=== PATIENT | female | born 1990 | race Asian ===

== ENCOUNTER → 2017-04-09 | Outpatient (CLI) | payer OTHER ==
[~2017-04-09] MED LIST: AMOX500C2; FOLI0.8C PO; PREN-115 PO
--- NOTE | 2017-04-09 15:41 | Diagnostic Imaging Report ---
PROCEDURE: US OB SINGLE FETUS <14 WKS. TECHNIQUE: Multiple real-time grayscale images were obtained over the gravid uterus in various projections. INDICATION: Evaluation for size and dates. FINDINGS: There is presence of an intrauterine . Medon-rump length measures 2.56 cm for an estimated age of 9 weeks 3 days. This gives an estimated date of delivery of November 09, 2017. cardiac activity demonstrated at 183 beats per minutes. No abnormal perigestational fluid collections. Limited imaging of the adnexa demonstrates nonvisualization of either ovary. Partially visualized bladder appears unremarkable. IMPRESSION: Early viable intrauterine with estimated age of 9 weeks 3 days for an estimated date of delivery of November 09, 2017. Dictated by: Dictated on workstation # [id number]
== END ==
LOC: RAD 14:04
PROVIDERS: ATTEND Family Medicine
DX: Z36 Encounter for antenatal screening of mother (principal); Z3A.09 9 weeks gestation of pregnancy
CPT/HCPCS: 76801

== ENCOUNTER 2017-04-19 18:51 | Emergency (ER) | payer OTHER ==
[~2017-04-19] VITALS: Ht 165.1 cm; Wt 72.6 kg
[~2017-04-19 18:51] MED LIST changes: -FOLI0.8C PO
--- OUTSIDE RECORDS SUMMARY | 2017-04-19 18:57 | XMS REPORT ---
Author Author IVET ROBERTSON eClinicalWorks Address Unknown Phone Unavailable Care Team Providers Care Hydraulic Auto Jack Mechanic Name Role Phone IVET ROBERTSON Unavailable Allergies No Known Allergies Problems Problem Type Condition Code Onset Dates Condition Status Assessment care, first , first trimester Z34.01 Active Assessment 8 weeks gestation of Z3A.08 Active Assessment Threatened miscarriage O20.0 Active Medications Medication Code System Code Instructions Start Date End Date Status Dosage [facility] [id number] not defined Procedures Procedure Coding System Code Date URINE TEST CPT-4 32169 Apr 30, 2016 CHORIONIC GONADOTROPIN TEST CPT-4 85242 Apr 30, 2016 URINALYSIS, AUTO, W/O SCOPE CPT-4 75311 Apr 30, 2016 Office Visit, Est Pt., Level 2 CPT-4 51654 Apr 30, 2016 VENIPUNCT, ROUTINE* CPT-4 54021 Apr 30, 2016 URINE CULTURE/COLONY COUNT CPT-4 59568 Apr 30, 2016 Vital Signs Date/Time: Apr 30, 2016 Blood Pressure Systolic 119 mmHg Cardiac Monitoring Heart Rate 84 bpm Weight 133.4 lbs Blood Pressure Diastolic 61 mmHg Results Name Result Date Reference Range Unit Abnormality Flag HCG, QUANTITATIVE ----hCG,Beta Subunit,Qnt,Serum 977 [id number] mIU/mL Ultrasound : OB, Early <14 WEEKS UA LONG DIP (IN HOUSE) ----JULIENNE 1+ 20160430 ----NIT Negative 20160430 ----SG 1.020 20160430 ----KET Negative 20160430 ----LUCRECIA Negative 20160430 ----GLU Negative 20160430 ----Odor None 20160430 ----pH 5.5 20160430 ----BLO 3+ 20160430 ----URO 0.2 20160430 ----Protein Negative 20160430 ----Lot # [id number] ----Exp date 20160430 ----Clarity Clear 20160430 ----Color Yellow 20160430 ROUTINE VENIPUNCTURE Summary Purpose eClinicalWorks Submission
--- OUTSIDE RECORDS SUMMARY | 2017-04-19 18:57 | XMS REPORT ---
Author Author IVET ROBERTSON [facility] Address [address] [place] [address] Care Team Providers Care Vp Strategy Name Role Phone IVET ROBERTSON Unavailable PROBLEMS Unknown Problems ALLERGIES Unknown Allergies SOCIAL HISTORY No smoking Hx information available PLAN OF CARE VITAL SIGNS MEDICATIONS Unknown Medications RESULTS Name Result Date Reference Range Ultrasound : OB, Early <14 WEEKS 2016-07-03 PROCEDURES No Known procedures IMMUNIZATIONS No Known Immunizations
--- OUTSIDE RECORDS SUMMARY | 2017-04-19 18:57 | XMS REPORT ---
Author Author SHYAM COOMBS Organization eClinicalWorks Address Unknown Phone Unavailable Care Team Providers Care Hand Sign Writer Name Role Phone SHYAM COOMBS Unavailable Allergies No Known Allergies Problems Problem Type Condition Code Onset Dates Condition Status Assessment Encounter for test Z32.00 Active Medications No Known Medications Procedures Procedure Coding System Code Date URINE TEST CPT-4 64385 Jun 16, 2016 Results Name Result Date Reference Range Unit Abnormality Flag TEST, URINE (IN HOUSE) ----RESULTS POSITIVE [id number] ----Lot # [id number] ----Control + 20160616 ----Exp date 20160616 Summary Purpose eClinicalWorks Submission
--- OUTSIDE RECORDS SUMMARY | 2017-04-19 18:57 | XMS REPORT ---
Author Author IVET ROBERTSON [facility] Address [address] [place] [address] Care Team Providers Care Business Systems Manager Name Role Phone IVET ROBERTSON Unavailable PROBLEMS Unknown Problems ALLERGIES Unknown Allergies SOCIAL HISTORY No smoking Hx information available PLAN OF CARE VITAL SIGNS MEDICATIONS No Known Medications RESULTS No Results PROCEDURES No Known procedures IMMUNIZATIONS No Known Immunizations
--- OUTSIDE RECORDS SUMMARY | 2017-04-19 18:57 | XMS REPORT ---
Author Author IVET ROBERTSON [facility] eClinicalWorks Address Unknown Phone Unavailable Care Team Providers Care Peanut Shaker Name Role Phone IVET ROBERTSON CP Unavailable Allergies No Known Allergies Problems Problem Type Condition Code Onset Dates Condition Status Assessment Miscarriage O03.9 Active Medications No Known Medications Procedures Procedure Coding System Code Date VENIPUNCT, ROUTINE* CPT-4 18156 May 15, 2016 CHORIONIC GONADOTROPIN TEST CPT-4 38831 May 15, 2016 Results Name Result Date Reference Range Unit Abnormality Flag ROUTINE VENIPUNCTURE HCG, QUANTITATIVE ----hCG,Beta Subunit,Qnt,Serum 13 [id number] mIU/mL Summary Purpose eClinicalWorks Submission
--- OUTSIDE RECORDS SUMMARY | 2017-04-19 18:57 | XMS REPORT ---
Author Author IVET ROBERTSON [facility] eClinicalWorks Address Unknown Phone Unavailable Care Team Providers Care Home Appliances Mechanic Name Role Phone IVET ROBERTSON Unavailable Allergies No Known Allergies Problems No Known Problems Medications No Known Medications Results No Known Results Summary Purpose eClinicalWorks Submission
--- OUTSIDE RECORDS SUMMARY | 2017-04-19 18:57 | XMS REPORT ---
Author Author SHYAM COOMBS [facility] Address [address] [place] [address] Care Team Providers Care Auto Parts Counter Person Name Role Phone SHYAM COOMBS Unavailable PROBLEMS Type Condition ICD9-CM Code UDW04-CM Code Onset Dates Condition Status SNOMED Code Assessment Dysuria R30.0 Jun, Active 23480185 ALLERGIES Unknown Allergies SOCIAL HISTORY No smoking Hx information available PLAN OF CARE VITAL SIGNS MEDICATIONS Medication Instructions Dosage Frequency Start Date End Date Duration Status Diflucan 150 MG Orally 1 tablet on WEDNESDAY and 1 tablet on WEDNESDAY 1 tablet Jun, Active RESULTS No Results PROCEDURES Procedure Date Ordered Related Diagnosis Body Site URINALYSIS, AUTO, W/O SCOPE Jun 22, 2016 IMMUNIZATIONS No Known Immunizations
--- OUTSIDE RECORDS SUMMARY | 2017-04-19 18:57 | XMS REPORT ---
Author JAYLEEN Shaikh Organization eClinicalWorks Address Unknown Phone Unavailable Care Team Providers Care Telephone Solicitor Name Role Phone JAYLEEN MCINTYRE CP Unavailable Allergies, Adverse Reactions, Alerts Substance Reaction Event Type N.K.D.A. Info Not Available Non Drug Allergy Problems Problem Type Condition Code Onset Dates Condition Status Assessment Urinary tract infection without hematuria, site unspecified N39.0 Active Medications Medication Code System Code Instructions Start Date End Date Status Dosage Amoxicillin [facility] [address]-53 500 MG Orally 3 times a day Apr 22, 2016 May 02, 2016 1 capsule Procedures Procedure Coding System Code Date Office Visit, Est Pt., Level 3 CPT-4 68331 Apr 22, 2016 URINALYSIS, AUTO, W/O SCOPE CPT-4 45918 Apr 22, 2016 Vital Signs Date/Time: Apr 22, 2016 Blood Pressure Diastolic 64 mmHg Blood Pressure Systolic 102 mmHg Cardiac Monitoring Heart Rate 88 bpm Results Name Result Date Reference Range Unit Abnormality Flag UA LONG DIP (IN HOUSE) ----JULIENNE Trace 20160422 ----NIT Negative 20160422 ----Exp date 20160422 ----Lot # [id number] ----SG 1.025 20160422 ----KET Negative 20160422 ----LUCRECIA Negative 20160422 ----GLU Negative 20160422 ----Odor None 20160422 ----pH 5.5 20160422 ----BLO 1+ 20160422 ----URO 0.2 20160422 ----Protein Negative 20160422 ----Lot # [id number] ----Exp date 20160422 ----Clarity Clear 20160422 ----Color Yellow 20160422 Summary Purpose eClinicalWorks Submission
--- OUTSIDE RECORDS SUMMARY | 2017-04-19 18:57 | XMS REPORT ---
Author WESTON Toribio [facility] eClinicalWorks Address Unknown Phone Unavailable Care Team Providers Care Plastics Engineering Teacher Name Role Phone WESTON AGUIRRE CP Unavailable Allergies, Adverse Reactions, Alerts Substance Reaction Event Type N.K.D.A. Info Not Available Non Drug Allergy Problems No Known Problems Medications No Known Medications Results No Known Results Summary Purpose eClinicalWorks Submission
--- OUTSIDE RECORDS SUMMARY | 2017-04-19 18:57 | XMS REPORT ---
Author Author SHYAM COOMBS Organization eClinicalWorks Address Unknown Phone Unavailable Care Team Providers Care Parking Cashier Name Role Phone SHYAM COOMBS CP Unavailable Allergies, Adverse Reactions, Alerts Substance Reaction Event Type N.K.D.A. Info Not Available Non Drug Allergy Problems Problem Type Condition Code Onset Dates Condition Status Assessment Epigastric pain R10.13 Active Assessment Miscarriage O03.9 Active Medications No Known Medications Procedures Procedure Coding System Code Date COMPLETE CBC W/AUTO DIFF WBC CPT-4 71037 May 20, 2016 VENIPUNCT, ROUTINE* CPT-4 72487 May 20, 2016 ASSAY THYROID STIM HORMONE CPT-4 37570 May 20, 2016 Office Visit, Est Pt., Level 3 CPT-4 82303 May 20, 2016 Vital Signs Date/Time: May 20, 2016 Cardiac Monitoring Heart Rate 76 bpm Weight 135 lbs Height 5'4" in BMI 23.17 Index Blood Pressure Diastolic 60 mmHg Blood Pressure Systolic 110 mmHg Results Name Result Date Reference Range Unit Abnormality Flag ROUTINE VENIPUNCTURE Summary Purpose eClinicalWorks Submission
--- OUTSIDE RECORDS SUMMARY | 2017-04-19 18:57 | XMS REPORT ---
Author Author IVET ROBERTSON eClinicalWorks Address Unknown Phone Unavailable Care Team Providers Care Cavity Pump Operator Name Role Phone IVET ROBERTSON CP Unavailable Allergies, Adverse Reactions, Alerts Substance Reaction Event Type N.K.D.A. Info Not Available Non Drug Allergy Problems Problem Type Condition Code Onset Dates Condition Status Assessment Blighted ovum O02.0 Active Assessment Incomplete miscarriage O03.4 Active Medications Medication Code System Code Instructions Start Date End Date Status Dosage [facility] [id number] not defined Procedures Procedure Coding System Code Date HYDE VAG, DNA, DIR PROBE CPT-4 67612 May 01, 2016 TRICHOMONAS ASSAY W/OPTIC CPT-4 17934 May 01, 2016 No Charge CPT-4 87310 May 01, 2016 Office Visit, Est Pt., Level 3 CPT-4 38692 May 01, 2016 CULTURE, BACTERIA, OTHER CPT-4 64141 May 01, 2016 Vital Signs Date/Time: May 01, 2016 Blood Pressure Systolic 104 mmHg Cardiac Monitoring Heart Rate 76 bpm Weight 133.6 lbs Blood Pressure Diastolic 62 mmHg Results Name Result Date Reference Range Unit Abnormality Flag TRICHOMONAS (IN HOUSE) ----TRICHOMONAS Negative 20160501 ----Control + 20160501 ----Lot # [id number] 20160501 ----Exp date 20160501 BACTERIAL VAGINOSIS (IN HOUSE) ----Exp date 20160501 ----Control + 20160501 ----Lot # [id number] ----RESULTS Negative 20160501 Summary Purpose eClinicalWorks Submission
--- OUTSIDE RECORDS SUMMARY | 2017-04-19 18:57 | XMS REPORT ---
Author Author SHYAM COOMBS Organization [facility] Address [address] [place] [address] Care Team Providers Care Senior Talent Acquisition Specialist Name Role Phone SHYAM COOMBS Unavailable PROBLEMS Type Condition ICD9-CM Code HHZ36-GK Code Onset Dates Condition Status SNOMED Code Assessment care in first trimester Z34.91 Jun, Active 004007071 Assessment 6 weeks gestation of Z3A.01 Jun, Active [id number] ALLERGIES Unknown Allergies SOCIAL HISTORY No smoking Hx information available PLAN OF CARE VITAL SIGNS Height 5'4" in 2016-06-30 Weight 135.6 lbs 2016-06-30 Heart Rate 84 bpm 2016-06-30 Respiratory Rate 16 2016-06-30 BMI 23.27 kg/m2 2016-06-30 Blood pressure systolic 112 mmHg 2016-06-30 Blood pressure diastolic 67 mmHg 2016-06-30 MEDICATIONS Medication Instructions Dosage Frequency Start Date End Date Duration Status Prometrium 200 mg [address]uncture capsule and place in vagina Once a day 1 capsule at bedtime 24h Jun, Jul, 30 days Active Active RESULTS Name Result Date Reference Range UA OB DIP (IN HOUSE) 2016-06-30 Glucose Negative Protein Negative UA LONG DIP (IN HOUSE) 2016-06-30 Lot # [id number] Exp date 05/2017 Clarity clear Color yellow Odor no GLU negative LUCRECIA negative KET negative SG 1.010 BLO negative pH 7.0 Protein negative URO 0.2 NIT negative JULIENNE Trace Lot # Exp date PROCEDURES Procedure Date Ordered Related Diagnosis Body Site URINE-NO MICRO Jun 30, 2016 URINALYSIS, AUTO, W/O SCOPE Jun 30, 2016 Office Visit, Est Pt., Level 3 Jun 30, 2016 IMMUNIZATIONS No Known Immunizations
--- NOTE | 2017-04-19 19:18 | ED EENT ---
History of Present Illness General Chief Complaint: Dental Problems/Pain Stated Complaint: DENTAL PAIN Source: spouse (FADI DOES ALL TALKING FOR PT) Exam Limitations: language barrier History of Present Illness Time seen by provider: 19:07 Initial Comments C/O TOOTHACHE TO LEFT LOWER TOOTH--BEGAN TODAY PT HAS HAD PROBLEMS WITH THIS TOOTH FOR A LONG TIME, BUT HAS NOT SEEN ANYONE IN OVER A YEAR FOR IT HAS NOT SEEN DENTIST HAS NOT TAKEN ANYTHING FOR PAIN PT IS PT JUST "WANTS THE TOOTH CLEANED OUT IMMEDIATELY" AND WANTS IT DONE HERE AND NOW. HAS EXTENSIVE DENTAL DECAY ADVISED PT AND SPOUSE THAT I AM NOT A DENTIST AND THE ONLY PERSON THAT WOULD BE ABLE TO REPAIR HER TOOTH AND "CLEAN OUT" THE DECAY IN THE TOOTH WOULD BE A DENTIST. Allergies and Home Medications Allergies Coded Allergies: No Known Drug Allergies (Unverified , 04/19/17) Home Medications Amoxicillin 500 Mg Capsule, #30 (Reported) Vit #108/Iron/FA 1 Each Tablet, 1 EACH PO DAILY, (Reported) Review of Systems Constitutional: No fever Mouth: see HPI Past Xldpsgf-Lnovpt-Ekukym Hx Patient Social History Recent Foreign Travel: No Contact w/Someone Who Travel: No Recent Hopitalizations: No (denies medical hx) Surgeries History of Surgeries: No Respiratory History of Respiratory Disorde: No Cardiovascular History of Cardiac Disorders: No Neurological History of Neurological Disord: No Reproductive System : Yes Genitourinary History of Genitourinary Disor: No Gastrointestinal History of Gastrointestinal Di: No Musculoskeletal History of Musculoskeletal Dis: No Endocrine History of Endocrine Disorders: No HEENT History of HEENT Disorders: Yes (DENTAL ISSUES) Cancer History of Cancer: No Integumentary History of Skin or Integumenta: No Blood Transfusions History of Blood Disorders: No Physical Exam Vital Signs Vital Sign - Last 12Hours 04/19/17 19:17 Temp 98.2 Pulse 76 Resp 18 B/P (MAP) 114/55 Pulse Ox 98 General Appearance: WD/WN, no apparent distress, other (DOES NOT APPEAR TO BE IN ANY DISCOMFORT) Mouth/Throat: No mandibular swelling, No maxillary swelling, other (LEFT LOWER FIRST MOLAR WITH EXTENSIVE DECAY--MOST OF TOOTH IS DECAYED DOWN TO GUM LINE. HAS SWELLING AND ERYTHEMA TO ADJACENT GUM TISSUE, + TENDERNESS TO PERCUSSION OF TOOTH AND ADJACENT TISSUE. NO SWELLING TO FACE. MUJLTIPLE OTHER TEETH WITH EXTENSIVE DECAY WELL. ) Progress/Results/Core Measures Results/Orders Vital Signs/I&O Vital Sign - Last 12Hours 04/19/17 04/19/17 19:17 19:29 Temp 98.2 Pulse 76 85 Resp 18 18 B/P (MAP) 114/55 Pulse Ox 98 99 Progress Note : Progress Note DISCUSSED AT LENGTH WITH PATIENT AND MALE S.O. THE TREATMENT RECOMMENDATIONS, AND EXPLAINED THAT THERE IS NO DENTIST IN THE EMERGENCY ROOM AND SHE WOULD NEED TO FOLLOW UP WITH A DENTIST FOR FURTHER CARE OF THIS PROBLEM, AND EXPLAINED TO THEM THAT IT WOULD GET WORSE IF LEFT UNTREATED PT REFUSES ANY MEDICATIONS, STATING THAT SHE DOES NOT WANT TO TAKE ANYTHING BECAUSE SHE IS . ASSURED HER THAT ANTIBIOTIC AND TOPICAL VISCOUS LIDOCAINE WOULD BE SAFE IN AND SHE STILL REFUSES, WITH SPOUSE STATING AGAIN THAT HE AND PT JUST "WANTS HER TOOTH CLEANED OUT" --WANTED ME TO "CLEAN OUT THE DECAY" I AGAIN ADVISED THEM THAT COULD ONLY BE DONE BY A DENTIST AND THEY WOULD NEED TO CALL AND ARRANGE TO SEE A DENTIST. ADVISED THEM THAT THEY ARE [facility]ABLISHED AT [facility], THEY SHOULD FIRST TRY [facility]. Departure Impression Impression: Primary Impression: Dental caries Disposition: 01 HOME, SELF-CARE Condition: Stable Departure-Patient Inst. Referrals: SHYAM COOMBS MD (PCP/Family) Primary Care Physician Patient Instructions: Tooth Decay, Adult (DC) Add. Discharge Instructions: FOLLOW UP WITH DENTIST OF CHOICE SOON POSSIBLE--CALL IN THE MORNING TO SCHEDULE APPOINTMENT TYLENOL NEEDED FOR PAIN All discharge instructions reviewed with patient and/or family. Voiced understanding. CHIN CARROLL DO Apr 19, 2017 19:18
[2017-04-19 19:29] VITALS: BP 123/84
== END 2017-04-19 19:29 | disposition home or self-care (01) ==
LOC: EDUNIT# 18:51 → ER 18:52
DX: K02.9 Dental caries, unspecified (principal)
CPT/HCPCS: 99282

== ENCOUNTER 2017-05-12 06:55 | Emergency (ER) | payer OTHER ==
[~2017-05-12] VITALS: Ht 160 cm; Wt 68.0 kg
[2017-05-12] MEDS ORDERED: LIDOCAINE 1% INJ 20 ML (XYLOCAINE) VIAL INJ ONE (07:15)
[2017-05-12] MEDS ORDERED: LIDOCAINE 2% VISCOUS 15 ML UDC MM ONE (07:15)
[2017-05-12] MEDS ORDERED: BUPIVACAINE 0.5% 30 ML (SENSORCAINE) VIAL INJ ONE (07:15)
--- NOTE | 2017-05-12 07:17 | ED EENT ---
History of Present Illness General Stated Complaint: DENTAL PAIN,14 WKS PREG Source: patient, spouse Exam Limitations: language barrier ( interpreting) History of Present Illness Time seen by provider: 07:05 Initial Comments Patient presents ER with private conveyance with her chief complaint of left lower tooth pain that is been going on for a few weeks now. [facility] told her because she is she doesn' t go to [place]. They put her on amoxicillin which she had been taking but has not helped much. The pain is very severe and interfering with her ability to eat well. Her last menstrual period is unknown but they said that Do date is in November 09, 2017 putting her at 14 weeks and 1 day. She does not have any allergies. She has not used any Tylenol. She tried to get an appointment with another dentist in [facility] but it would be several months before she could be seen. The patient has an appointment with a dentist in [place] today but could not stand the pain anymore. No fevers, vomiting, chills, nausea, shortness of breath or chest pain. She does take a vitamin and has taken an over-the -counter allergy tablet for her allergic rhinitis. Allergies and Home Medications Allergies Coded Allergies: No Known Drug Allergies (Unverified , 04/19/17) Home Medications Amoxicillin 500 Mg Capsule, #30 (Reported) Vit #108/Iron/FA 1 Each Tablet, 1 EACH PO DAILY, (Reported) Review of Systems Constitutional: No chills, No diaphoresis, No fever Eyes: Denies Blindness, Denies Drainage Ears: Denies Dizziness, Denies Pain Nose: denies clots, denies congestion Mouth: denies clots, denies loose teeth, pain, denies bloody discharge, denies purulent discharge, denies serosanguinous discharge Throat: denies pain, denies swelling Respiratory: No cough, No short of breath Past Eqvsehn-Pastsu-Nadvvy Hx Patient Social History Alcohol Use: Denies Use Recreational Drug Use: No Smoking Status: Never a Smoker 2nd Hand Smoke Exposure: No Recent Foreign Travel: No Contact w/Someone Who Travel: No Recent Hopitalizations: No (denies medical hx) Surgeries History of Surgeries: No Respiratory History of Respiratory Disorde: No Cardiovascular History of Cardiac Disorders: No Neurological History of Neurological Disord: No Genitourinary History of Genitourinary Disor: No Gastrointestinal History of Gastrointestinal Di: No Musculoskeletal History of Musculoskeletal Dis: No Endocrine History of Endocrine Disorders: No HEENT History of HEENT Disorders: Yes (DENTAL ISSUES) Cancer History of Cancer: No Integumentary History of Skin or Integumenta: No Blood Transfusions History of Blood Disorders: No Physical Exam Vital Signs Vital Sign - Last 12Hours 05/12/17 07:00 Temp 98.0 Pulse 69 Resp 18 B/P (MAP) 109/61 Pulse Ox 98 General Appearance: WD/WN, no apparent distress Eyes: bilateral eye normal inspection, bilateral eye PERRL, bilateral eye EOMI Ears: bilateral ear auricle normal, bilateral ear canal normal, bilateral ear TM normal Nose: normal inspection, No active bleeding Mouth/Throat: pharynx normal, other (dental caries left lower mandible. No abscess seen.) Neck: non-tender, normal inspection Neurologic/Psychiatric: alert, oriented x 3 Skin: normal color, warm/dry Dental Procedures: alveolar nerve block with 1/2 cc of 1% lidocaine and 1/2 cc of 0.5% Marcaine. Patient tolerated procedure well Progress/Results/Core Measures Results/Orders My Orders Orders - SORIN LINDSEY Bupivacaine 0.5% Injection (Sensorcaine (05/12/17 07:15) Lidocaine 1% Injection (Xylocaine 1% Inj (05/12/17 07:15) Lidocaine 2% Viscous 15 Ml (Xylocaine Vi (05/12/17 07:15) Medications Given in ED Current Medications Medications Dose Ordered Sig/Christi Route Start Time Stop Time Status Last Admin Dose Admin Bupivacaine HCl 30 ml ONCE ONCE INJ 05/12/17 07:15 05/12/17 07:16 DC 05/12/17 07:22 30 ML Lidocaine HCl 15 ml ONCE ONCE MM 05/12/17 07:15 05/12/17 07:16 DC 05/12/17 07:22 15 ML Lidocaine HCl 20 ml ONCE ONCE INJ 05/12/17 07:15 05/12/17 07:16 DC 05/12/17 07:22 20 ML Vital Signs/I&O Vital Sign - Last 12Hours 05/12/17 07:00 Temp 98.0 Pulse 69 Resp 18 B/P (MAP) 109/61 Pulse Ox 98 Departure Impression Impression: Primary Impression: Dental caries Additional Impression: Bilateral otitis media with effusion Disposition: 01 HOME, SELF-CARE Condition: Stable Departure-Patient Inst. Decision time for Depature: 07:27 Referrals: SHYAM COOMBS MD (PCP/Family) Primary Care Physician Patient Instructions: Dental Pain (DC) Add. Discharge Instructions: You should get some pain relief from the injection for about 6-8 hours. If the pain comes back you can use the lidocaine infused cotton gauze and just put it directly over the tooth is hurting and bite down on it. Do not swallow it. You can take Tylenol 1000 mg every 8 hours. While you are you should not use NSAIDs such as Motrin, Naprosyn, Aleve etc. It is okay to use an antihistamine such as Claritin, loratadine, cetirizine, Zyrtec for your allergies. You may also use a nasal steroids such as Flonase, fluticasone for your otitis media with serous effusion for the next weeks. Please keep your appointment with the dentist today. Continue taking the amoxicillin as prescribed. Copy Copies To 1: WESTON AGUIRRE TITUS J May 12, 2017 07:17
[2017-05-12] MEDS ORDERED: FOLI0.8C PO (07:32)
[2017-05-12 07:33] VITALS: BP 109/61
== END 2017-05-12 07:33 | disposition home or self-care (01) ==
LOC: EDUNIT# 06:55 → ER 06:59
DX: O99.89 Other specified diseases and conditions complicating pregnancy, childbirth and the puerperium (principal); K02.9 Dental caries, unspecified; H65.93 Unspecified nonsuppurative otitis media, bilateral
CPT/HCPCS: 99282

== ENCOUNTER → 2017-06-09 | Outpatient (CLI) | payer OTHER ==
[~2017-06-09] MED LIST changes: +FOLI0.8C PO
--- NOTE | 2017-06-09 16:20 | Diagnostic Imaging Report ---
INDICATION: survey. TECHNIQUE: Multiple real-time grayscale images were obtained over the gravid uterus. COMPARISON: 04/09/2017 FINDINGS: heart rate is 152 beats per minute. The placenta is anterior and extends to the lower uterine segment by 1 cm from the internal os, low-lying placenta. There is adequate amniotic fluid. The cervix is closed and is 3.5 cm. The bladder, two umbilical arteries, the four-chamber view, no ventriculomegaly, and the kidneys appear unremarkable. The cord insertion appears normal. The spine and the posterior fossa are not well demonstrated on this exam due to position. Biometrical measurements are as follows: Biparietal 4.06 cm, age 18 weeks 3 days. Head circumference 12.22 cm, age 18 weeks 0 days. Abdominal circumference 12.22 cm, age 18 weeks 0 days. Femur length 2.70 cm, age 18 weeks 2 days. Sonographic estimate age: 18 weeks 3 days. Sonographic estimated date of delivery: 11-07-17. Estimated Weight: 224 gm (+/- 33 gm). LMP percentile: 43%. heart rate: 152 beats per minute. number: 1 of 1. IMPRESSION: 1. Low-lying placenta. 2. The posterior fossa structures and the spine are not well seen at this time. Followup exam within three weeks is recommended to reevaluate. Dictated by: Dictated on workstation # [id number]
== END ==
LOC: RAD 14:49
PROVIDERS: ATTEND Family Medicine
DX: O44.42 Low lying placenta NOS or without hemorrhage, second trimester (principal); Z3A.18 18 weeks gestation of pregnancy
CPT/HCPCS: 76805

== ENCOUNTER 2017-06-26 20:27 | Outpatient (CLI) | payer OTHER ==
[~2017-06-26] VITALS: Ht 160 cm; Wt 72.6 kg
[2017-06-26 20:46] VITALS: BP 119/56
[2017-06-26 20:59] LABS: BILIRUBIN,URINE NEGATIVE (NEGATIVE); KETONES,URINE NEGATIVE (NEGATIVE); LEUKOCYTE ESTERASE ,URINE NEGATIVE (NEGATIVE); NITRITE,URINE NEGATIVE (NEGATIVE); PH,URINE 7 (5-9); PROTEIN,URINE NEGATIVE (NEGATIVE); UROBILINOGEN,URINE NORMAL (NORMAL)
[2017-06-26 21:09] LABS: WBC,URINE 0-2 /HPF
[2017-06-26] MEDS ORDERED: IBUPROFEN 600 MG (MOTRIN) TAB PO ONE ×2 (21:17→21:30)
--- NOTE | 2017-06-28 07:46 | Physician Query-Final Dx ---
DARIAN LÓPEZ 06/28/17 0746: Clinic Account Progress/Dx Physician Query: Please give diagnosis Date of Service Jun 26, 2017 at 20:27 FIORDALIZA MEZA DO 06/29/17 2007: Clinic Account Progress/Dx DIAGNOSIS: Diagnosis Threatened Labor DARIAN LÓPEZ Jun 28, 2017 07:46 FIORDALIZA MEZA DO Jun 29, 2017 20:07
== END 2017-06-26 21:29 | disposition home or self-care (01) ==
LOC: WSo 20:27 → LDRP 20:28 → WSo 21:29
PROVIDERS: ATTEND Family Medicine
DX: O47.02 False labor before 37 completed weeks of gestation, second trimester (principal); Z3A.20 20 weeks gestation of pregnancy
CPT/HCPCS: 81000; 99212

== ENCOUNTER → 2017-07-06 | Outpatient (CLI) | payer OTHER ==
--- NOTE | 2017-07-06 14:40 | Diagnostic Imaging Report ---
INDICATION: Followup spine, head anatomy and placenta position. TECHNIQUE: Multiple real-time grayscale images were obtained over the gravid uterus. COMPARISON: 06/09/17 FINDINGS: heart rate is 158 beats per minute. The placenta is anterior and is away from the cervix. No placenta previa. The amniotic fluid appears adequate. The cervix is 3.6 cm in length and is closed. The lateral ventricles are not dilated and the posterior fossa appears unremarkable. The spine is still not well seen due to position. The maternal adnexa is obscured by the gravid uterus. IMPRESSION: The spine is still not seen due to position. Dictated by: Dictated on workstation # [id number]
== END ==
LOC: RAD 11:25
PROVIDERS: ATTEND Family Medicine
DX: O44.42 Low lying placenta NOS or without hemorrhage, second trimester (principal); Z3A.00 Weeks of gestation of pregnancy not specified
CPT/HCPCS: 76816

== ENCOUNTER 2017-07-25 00:25 | Outpatient (CLI) | payer OTHER ==
[~2017-07-25] VITALS: Ht 160 cm; Wt 78.5 kg
[2017-07-25 00:30] VITALS: BP 117/68
[2017-07-25 00:46] LABS: BILIRUBIN,URINE NEGATIVE (NEGATIVE); CLARITY,URINE CLEAR; COLOR,URINE YELLOW; GLUCOSE, URINE (UA) NEGATIVE (NEGATIVE); KETONES,URINE NEGATIVE (NEGATIVE); LEUKOCYTE ESTERASE ,URINE NEGATIVE (NEGATIVE); NITRITE,URINE NEGATIVE (NEGATIVE); PH,URINE 6.5 (5-9); PROTEIN,URINE NEGATIVE (NEGATIVE); UROBILINOGEN,URINE NORMAL (NORMAL)
[2017-07-25 00:53] LABS: BACTERIA,URINE TRACE /HPF; WBC,URINE RARE /HPF
--- NOTE | 2017-07-26 09:25 | Physician Query-Final Dx ---
DARIAN LÓPEZ 07/26/17 0925: Clinic Account Progress/Dx Physician Query: Please give diagnosis Date of Service Jul 25, 2017 at 00:25 IVET ROBERTSON MD 07/30/17 1708: Clinic Account Progress/Dx DIAGNOSIS: Diagnosis 24 weeks gestation Abdominal pain Second trimester DARIAN LÓPEZ Jul 26, 2017 09:25 IVET ROBERTSON MD Jul 30, 2017 17:08
== END 2017-07-25 01:11 | disposition home or self-care (01) ==
LOC: LDRP 00:25 → WSo 00:25
PROVIDERS: ATTEND Family Medicine
DX: O99.89 Other specified diseases and conditions complicating pregnancy, childbirth and the puerperium (principal); R10.84 Generalized abdominal pain; Z3A.24 24 weeks gestation of pregnancy
CPT/HCPCS: 81000; 99212